=== PATIENT | male | born 1960 | race Caucasian/White ===

== ENCOUNTER 2020-08-26 17:33 | Outpatient (CLI) | payer BC, SELFPAY ==
--- NOTE | ~2020-08-26 | XR_ITS ---
EXAMINATION: XR abdomen/kub 1V EXAM DATE: 08/26/2020 17:45 INDICATION: Bilateral kidney stones. TECHNIQUE: Frontal projection of the upper abdomen, frontal projection lower abdomen/pelvis for inter pretation. Comparison is made to prior examination from 09/26/2019. FINDINGS: There is expected amount of colonic stool and gas. No small bowel dilation, nonobstructiv e bowel gas pattern. Probable reidentification of approximately 4 mm right calyceal stone, finding i ndicated. No other definite genitourinary calcifications. There is no organomegaly suspected. Ther e is mild lumbar levoscoliosis, mild to moderate lower lumbar spondylosis. IMPRESSION: Probable right nephrolithiasis. Reviewed, dictated and finalized at location A.
== END 2020-08-26 17:34 | disposition home or self-care (01) ==
LOC: ANHIMG 17:36
PROVIDERS: PCP Physician Assistant; Visit Provider Urology
DX: N20.0 Calculus of kidney (principal)
CPT/HCPCS: 74018

== ENCOUNTER 2021-09-18 08:31 | Outpatient (CLI) | payer BC, SELFPAY ==
--- NOTE | ~2021-09-18 | XR_ITS ---
EXAMINATION: XR abdomen/kub 1V INDICATION: Bilateral kidney stones TECHNIQUE: Supine views of the abdomen were obtained on 2 radiographs. COMPARISON: 08/26/2020 FINDINGS: There appears to be a 4 mm stone of the right mid kidney. No definite additional urolithias is is identified. No stones are identified along the expected courses of the ureters or within the ur inary bladder. The bowel gas pattern is normal. There is moderate lumbar spondylosis. Mild osteoarthr itis is noted in the hips. IMPRESSION: 1. Likely 4 mm right kidney stone. Reviewed, dictated and finalized at location D. T PRESS OPERATOR
== END 2021-09-18 08:32 | disposition home or self-care (01) ==
PROVIDERS: PCP Physician Assistant; Visit Provider Nurse Practitioner Adult Health
DX: N20.0 Calculus of kidney (principal)
CPT/HCPCS: 74018

== ENCOUNTER 2022-09-20 08:38 | Outpatient (CLI) | payer BC, SELFPAY ==
--- NOTE | ~2022-09-20 | XR_ITS ---
EXAMINATION: XR abdomen/kub 1V INDICATION: Bilateral kidney stones TECHNIQUE: Supine views of the abdomen were obtained on 2 radiographs. COMPARISON: 09/18/2021 FINDINGS: A 4 mm stone projects in the right mid kidney. There appears to be a 2 mm stone in the left kidney upper pole. No stones are identified along the expected courses of the ureters or urinary sabino dder. The bowel gas pattern is normal. There is moderate osteoarthritis of the hips. IMPRESSION: 1. Bilateral nephrolithiasis. Reviewed, dictated and finalized at location F. NER ASSISTANT
== END 2022-09-20 08:39 | disposition home or self-care (01) ==
PROVIDERS: Visit Provider Nurse Practitioner Adult Health
DX: N20.0 Calculus of kidney (principal)
CPT/HCPCS: 74018

== ENCOUNTER 2023-09-20 08:43 | Outpatient (CLI) | payer BC, SELFPAY ==
--- NOTE | ~2023-09-20 | XR_ITS ---
Supine and upright views of the abdomen Clinical history: Kidney stones COMPARISON: 09/20/2022 Findings: Bowel gas pattern is nonspecific. No evidence for obstruction or free air. Right kidney sto marcos are probably similar to prior exam, measuring up to 4 mm in maximum diameter. No definite left re nal stone. Osseous structures are intact. Impression: Probable right nephrolithiasis, as above. Reviewed, dictated and finalized at location . MANAGER Impression: Probable right nephrolithiasis, as above.
== END 2023-09-20 08:44 | disposition home or self-care (01) ==
PROVIDERS: Visit Provider Nurse Practitioner Adult Health
DX: N20.0 Calculus of kidney (principal)
CPT/HCPCS: 74018